=== PATIENT | male | born 1970 | race Hispanic/Latino ===

== ENCOUNTER 2020-08-22 10:11 | Inpatient (IN) | payer SELFPAY ==
[~2020-08-22] VITALS: Ht 162.6 cm; Wt 36.0 kg
[2020-08-22] VITALS (11 sets, daily range): BP systolic 50–115; BP diastolic 33–90
--- NOTE | 2020-08-22 10:11 | NUR ---
PROPER PPE DONNED BY ALL PERSONEL PRIOR TO ENTERING ROOM FOR TRIAGE AND FOR MD EXAM. PATIENT WORE MASK DURING TRIAGE AND EXAM. PATIENT APPEARS IN NO APPARENT DISTRESS AT THIS TIME.
--- NOTE | 2020-08-22 10:11 | NUR ---
PATIENT IMMEDIATELY TO TREATMENT AREA FOR BEDSIDE TRIAGE. PATIENT PLACED ON ISOLATION AND MD AT BEDSIDE FOR EVAL
--- NOTE | 2020-08-22 10:15 | NUR ---
patient settled to room, emaciated in appearance, No apparent distress but appears weak.
[2020-08-22 10:47] LABS: GFR > 60 ML/MIN (>=60 (CALC)); GFR FOR AFR.AMER. > 60 ML/MIN (>=60 (CALC))
[2020-08-22 10:48] LABS: HEMATOCRIT 38.3 % (39.0-50.0); HEMOGLOBIN 12.3 g/dl (14.0-18.0); IMMATURE GRANULOCYTES 0.5 % (0.0-5.0); MEAN CELL VOLUME 89.5 fL CALC (80.0-100.0); MEAN CORPUSCULAR HGB 28.7 pG CALC (26.0-32.0); MEAN CORPUSCULAR HGB CONC 32.1 g/dL CAL (32.0-36.0); NEUT# 3.4 thou/uL (1.82-7.42); RED BLOOD COUNT 4.28 mill/uL (4.70-6.10)
[2020-08-22 11:07] LABS: ALBUMIN 2.8 g/dL (3.2-5.0); ALKALINE PHOSPHATASE 258 u/l (38-126); ANION GAP 13 (6-22 (CALC)); BILIRUBIN, TOTAL 0.7 mg/dL (0.0-1.4); BUN 32 mg/dL (9-20); BUN/CREATININE RATIO 73 (12-20 (CALC)); CARBON DIOXIDE 33 mmol/l (22-30); CHLORIDE 90 mmol/l (95-108); CREATININE 0.4 mg/dL (0.7-1.3); GFR > 60 ML/MIN (>=60 (CALC)); GFR FOR AFR.AMER. > 60 ML/MIN (>=60 (CALC)); MAGNESIUM 2.2 mg/dL (1.6-2.3); POTASSIUM 4.1 mmol/l (3.5-5.1); SGOT/AST 130 u/l (17-59); SODIUM 132 mmol/l (137-146)
--- NOTE | 2020-08-22 12:37 | NUR ---
TRANSFERRED TO ROOM 16 , NEGATIVE PRESSURE. iSOLATION CONTINUES. AIRBORNE PRECAUTIONS CONTINUE.
--- NOTE | 2020-08-22 13:24 | NUR ---
rePORT CALLED TO Jennifer ward IN SBAR FORMAT.
--- NOTE | 2020-08-22 13:42 | NUR ---
PT ARRIVED TO [facility] ROOM 266 VIA STRETCHER ACCOMPAINED BY ER STAFF. PT TRANSFERED FROM STRETCHER TO BE WITH LITTLE DIFFICULTY. PT IS A/O X2 . PT IS SWEDISH SPEAKING ONLY. ASSESSMENT AND VITALS OBTAINED. BP 109/73, YHR 97, O2 96% ON ROOM AIR. RESPIRATIONS ARE SHALLOW AND LABORED. LUNG SOUNDS ARE WET/RONCHI ON ASCULTATING. HEART RHYTHM IS NORMAL WITH TELE IN PLACE. BOWEL SOUNDS ARE ACTIVE IN ALL QUADRANTS, LAST REPORTED BM 08/21/2020. RADIAL AND PEDAL PULSES ARE WEAK. #20G IN LAC RUNNING WITH IVF PER ORDER, SITE APPEARS HEALTHY AND PATENT. PT APPEARS TO BE VERY MALNOURUISHED, WEIGHING 35.2 KG. SKIN IS COOL AND DRY WITH NO BREAKDOWN NOTED. PT NOTIFIED OF NEEDED URINE SAMPLE. PT DENIES ANY ALLERGIES, ALLERGY BAND APPLIED. PT DENIES ANY PAIN. PT PRESENTS WITH $893.00 IN [place], SENT TO [employer] BY [employer]. TOI WITNESSED. ALL SAFETY PRECAUTIONS ARE IN PLACE WITH CALL LIGHT IN REACH. ALL SAFETY PRECAUTIONS ARE IN PLACE WITH CALL LIGHT IN REACH. WILL CONTINUE TO MONITOR.
--- NOTE | 2020-08-22 13:50 | NUR ---
TRANSFERRED TO FLOOR. STABLE UPON ARRIVAL.
--- NOTE | 2020-08-22 15:05 | NUR ---
[address]PT TOLERATED WELL. 800 LUISA COLORED OUTPUT. TUBING UNOBSTRUCTED FLOWING WITH GRAVITY
--- NOTE | 2020-08-22 15:20 | NUR ---
S: RICHAR BUSCH is a 50 M who presents with abscess/cellulitis. He has a no past medical history. All medications in patient's chart were reviewed. O: VS: BP 117/79 mmHg, P 92 bpm, RR 18 breaths/min, T 97.8 F W 35.2 kg, HT 64 inches, Scr= 0.6 mg/dL, CrCl= 72.5 ml/min A: Blood culture is pending. P: Patient is on cefepime 2 gm IV q12h. Vancomycin ordered for pharmacy to dose. Start Vancomycin 1g IV Q24H. Vancomycin trough is drawn before the 4th dose on 08/25/2020 at 1200. Vancomycin goal trough is between 10-15 mcg/ml. Pharmacy will follow and or advise on antibiotics use as needed.
[2020-08-22 15:28] LABS: URINE BILIRUBIN - DIPSTICK NEGATIVE (NEGATIVE); URINE BLOOD DIPSTICK NEGATIVE (NEGATIVE); URINE COLOR YELLOW; URINE GLUCOSE - DIPSTICK NEGATIVE (NEGATIVE); URINE KETONE NEGATIVE (NEGATIVE); URINE LEUK ESTERASE NEGATIVE (NEGATIVE); URINE NITRITE - DIPSTICK NEGATIVE (Negative); URINE PH 6.5 (4.5-8.0); URINE PROTEIN - DIPSTICK NEGATIVE (NEG-TRACE); URINE SPECIFIC GRAVITY 1.015
--- NOTE | 2020-08-22 16:23 | NUR ---
WRITTER CALLED BY BENJI CUNHA ABOUT LACTIC ACID REUSLTING IN 2.0. DLEEANRP NOTIFIED
--- NOTE | 2020-08-22 16:36 | NUR ---
ORDERS TO TRANSFER TO [facility].
--- NOTE | 2020-08-22 16:43 | NUR ---
SPOKE TO LIVIA FROM [facility]. BIOFIRE TO BE COMPLETED. FACESHEET FAXED TO [facility] TRANSFER [facility].
--- NOTE | 2020-08-22 16:50 | NUR ---
BIOFIRE COLLECTED. PT TOLERATED WELL.
--- NOTE | 2020-08-22 17:44 | NUR ---
UPDATE REC FROM LIVIA AT [facility] TRANSFER [facility]. AWAITING COVID RESULTS. PER LIVIA WORKING ON OBTAINING NEGATIVE PRESSURE ROOM.
--- NOTE | 2020-08-22 18:02 | NUR ---
ATTMEPT MADE TO CALL FAMILY TO OBTAIN VERBAL CONSENT TO TRANSFER TO [facility], PER EMERGENCY LISTED CONTACT, THE PTS COUSINS PHONE NUMBER WAS GIVEN . ATTEMPT MADE TO SPEAK TO COUSIN, NO ANSWER AND NO PLACE TO LEAVE VOICEMAIL. ATTEMPT TO BE MADE AGAIN.
--- NOTE | 2020-08-22 18:13 | NUR ---
VERBAL CONSENT TO TRANSFER FROM [facility]
--- NOTE | 2020-08-22 18:31 | NUR ---
WRITTER NOTIFIED OF APPROVAL OF TRANSFER FROM [facility] FROM TRANSFER CENTER. AWAITING RESPIRATORY PCR RESULTS BEFORE GIVEN BED ASSIGNMENT.
--- NOTE | 2020-08-22 19:10 | NUR ---
BIOFIRE NEGATIVE. RESULTS FAXED TO LIVIA AT [facility] TRANSFER [facility]
--- NOTE | 2020-08-22 19:13 | NUR ---
BED ASSIGNMENT [facility] ROOM 9112 RECIEVED FROM [facility] FROM TRANSFER CENTER.
--- NOTE | 2020-08-22 19:25 | NUR ---
WRIITER NOTIFIED BY GLOVE MAKER THAT BP AND O2 SAT WAS UNABLE TO BE OBTAINED. UPON ENTERING ROOM. PT IS NON RESPONSIVE. BREATHING IS AGONAL. 5L NC APPLIED. MANUAL BP OBTAINED RESULTING IN 50/33. O2 SATS 43%
--- NOTE | 2020-08-22 19:30 | NUR ---
RAPID RESPONSE CALLED. ORDERS FROM DR MONTENEGRO BOLUS X2 AND TRANSFER TO ICU TO INTUBATE IF NEEDED. PT REMAINS UNRESPONSIVE AND BREATHING AGANOL. PT TRANSFERED TO ICU.
--- NOTE | 2020-08-22 19:36 | NUR ---
TO ICU S/P RAPID RESPONSE. ON ARRIVAL, PT NOT RESPONSIVE AND STAFF REPORTED THEY DID NOT THINK HE HAS A PULSE AT THIS TIME. [facility] CALLED.
--- NOTE | 2020-08-22 20:25 | NUR ---
DURING CODE, IO PLACE LLE, TLCL PLACED IN RIJ (VERIFIED BY RADIOLOGY AND PERMISSION TO USE BY DR MCGEE), LEVOPHED INITATED AND INCREASED TO 25MCG/MIN, DIPRIVAN INITIATED AND REMAINS AT 5MCH/KG/MIN (1.1ML/HR), RECEIVED 3000ML NS VIA BOLUSES AFTER RESUMED D5NS AT 100ML/HR. PT HAS MICHEL TO BSD, INTUBATED WITH EASE WITH 7.5 ETT AND SECURED IN CENTER OF MOUTH WITH COMMERTIAL VALERIO AT 23CM LIP LINE. OG INSERTED (WITH EASE) AND PLACEMENT VERIFIED. TO LIS. SMALL AMOUNT BILE COLORED DRAINAGE OBTAINED. PULSE GENERALLLY GREATER THAN 100 AND READILY PALPABLE. ONLY B/P OBTAINED BY MONITOR WAS 96/72 AT 2009. OTHERWISE, ONLY MANUAL B/P PALPED OBTAINED SO FAR. VENT SETTINGS ASSIST CONTROL, RATE 16, O2 100%, TV 450, PEEP 5. RESPIRATIONS 16. PUPILS 4 AND SLUGGISH
--- NOTE | 2020-08-22 20:35 | NUR ---
INTUBATED BY ER DOCTOR WITH A 7.5 ETT AT 23 CM OF THE LIPS. ETT PLACEMENT VERIFIED BY CO2 DETECTOR, BREATH SOUND LISTENING AND THEN X-RAY. PLACED ON VENTILATOR WITH THE FOLLOWING SETTING: AC RATE 16, VT 450, PEEP 5 AND 100% FIO2.
[2020-08-23] VITALS: BP 96/62
--- NOTE | 2020-08-23 00:05 | NUR ---
DR MONTENEGRO NOTIFIED OF PATIENT'S CONDITION AND THAT THE TRANSFER CENTER AT [facility] WOULD NEED A [id number] REPORT IF DR MONTENEGRO STILL WANTS PATIENT TRANSFERRED TO [facility]. WE WILL CONTINUE TREATMENT IN ICU AT THIS TIME RX.
--- NOTE | 2020-08-23 00:33 | NUR ---
FAMILY GRAY HOWE AND HIS DAUGHTER MARSHA HOWE NOTIFIED OF PATIENT'S CHANGE OF CONDITION. I INFORMED THEM THAT HE IS ON LIFE SUPPORT AND TOO UNSTABLE TO TRANSFER TO [facility] AT THIS TIME. THEY ASKED THAT WE CONTINUE TO DO WHAT IS NEEDED TO KEEP HIM ALIVE AND THANKED ME FOR THE UPDATE.
[2020-08-23 01:00] VITALS: BP 92/64
[2020-08-23 01:30] VITALS: BP 99/56
--- NOTE | 2020-08-23 01:30 | NUR ---
BEDRESTING. NO RESPONSE TO STERNAL RUB. B/P ARE PALPABLE- NOT OBTAINED VIA MONITOR. CONTINUE WITH D5NS, DIPRIVAN AND LEVOPHED THROUGH TLCL. IO AND IV OF LEFT A/C ARE HL
[2020-08-23 02:00] VITALS: BP 112/68
--- NOTE | 2020-08-23 02:52 | NUR ---
OPENING EYES LOOKING ABOUT. GIVEN ORIENTATION. ATTEMPTING TO REMOVE WRIST RESTRAINTS. INCREASED DIPROVAN FOR SAFETY
--- NOTE | 2020-08-23 03:58 | NUR ---
CONTINUE TO GET B/P PALPABLE. URINE OUTPUT HAS INCEAASED AND IS NOW DARK YELLOW INSTAD OF LUISA. PT HAS HAD A LARGE AMOUNT OF IV FLUIDS
--- NOTE | 2020-08-23 04:15 | NUR ---
RT AT BEDSIDE SAT CONTINUES TO SLOWLY DECREASE. ABG DONE. PEEP RAISED TO 7. PT WAKING SO DIPRIVAN RAISED TOO
[2020-08-23 04:46] LABS: BASO% 0 % (0-3); EOS% 0 % (0-8); HEMATOCRIT 34.5 % (39.0-50.0); HEMOGLOBIN 10.6 g/dl (14.0-18.0); IMMATURE GRANULOCYTES 0.5 % (0.0-5.0); LYMPH% 3 % (15-41); MEAN CELL VOLUME 92.7 fL CALC (80.0-100.0); MEAN CORPUSCULAR HGB 28.5 pG CALC (26.0-32.0); MEAN CORPUSCULAR HGB CONC 30.7 g/dL CAL (32.0-36.0); MONO% 1 % (2-13); NEUT# 3.53 thou/uL (1.82-7.42); NEUT% 95 % (42-76); PLATELET COUNT 375 thou/uL (130-400); RED BLOOD COUNT 3.72 mill/uL (4.70-6.10); RED CELL DISTRI WIDTH 15.4 % (11.5-15.5)
--- NOTE | 2020-08-23 04:55 | NUR ---
BEDRESTING. CONTINUES ON VENT WITH AIRBORNE PRECAUTIONS.
[2020-08-23 05:09] LABS: BUN 34 mg/dL (9-20); BUN/CREATININE RATIO 63 (12-20 (CALC)); CREATININE 0.5 mg/dL (0.7-1.3); GFR > 60 ML/MIN (>=60 (CALC)); GFR FOR AFR.AMER. > 60 ML/MIN (>=60 (CALC)); POTASSIUM 4.4 mmol/l (3.5-5.1); SGOT/AST 130 u/l (17-59); SODIUM 131 mmol/l (137-146)
[2020-08-23 05:21] LABS: ALBUMIN 1.9 g/dL (3.2-5.0); ALKALINE PHOSPHATASE 388 u/l (38-126); ANION GAP 12 (6-22 (CALC)); BILIRUBIN, TOTAL 1.2 mg/dL (0.0-1.4); C-REACTIVE PROTEIN 21.1 mg/dL (0-0.9); CARBON DIOXIDE 21 mmol/l (22-30); CHLORIDE 102 mmol/l (95-108)
--- NOTE | 2020-08-23 06:27 | NUR ---
BEDRESTING. RESP EVEN AND NONLABORED. TOLERATING VENT SETTINGS WELL.
--- NOTE | 2020-08-23 06:30 | NUR ---
B/O STILL PALPABLE-NOT AUDIBLE
--- NOTE | 2020-08-23 08:00 | NUR ---
PT SUPINE IN BED. INTUBATED. IV MEDS INFUSING WITHOUT COMPLICATIONS. VITALS STABLE ON MONITOR.
--- NOTE | 2020-08-23 09:58 | NUR ---
DR COLEMAN PHONED AND GAVE APPROVAL FOR FEMORAL A LINE.
--- NOTE | 2020-08-23 10:00 | NUR ---
UNABLE TO OBTAIN A BP ON MONITOR OR MANUAL. DR COLEMAN WAS AT BEDSIDE AND AWARE. ORDER PLACED FOR ARTERIAL LINE.
--- NOTE | 2020-08-23 11:45 | NUR ---
PENDING TRANSFER. AWAITING BED ASSIGNEMENT FROM [facility] ICU.
--- NOTE | 2020-08-23 14:32 | NUR ---
call received from Essence at [facility] transfer center; pt to transfer to 10A; report to be called to [phone]
--- NOTE | 2020-08-23 14:35 | NUR ---
Dr Wiggins called per Martinez May RN in regards to mode of transfer; pt to transfer per ground transport;
--- NOTE | 2020-08-23 14:42 | NUR ---
[facility] Transfer [facility] called per this fiction and nonfiction writer prose; information provided; ETA 45 min to 1 hour;
[2020-08-23 15:00] VITALS: BP 85/44
--- NOTE | 2020-08-23 15:45 | NUR ---
REPORT CALLED TO [facility] ICU, SPOKE WITH MAGDA POTTER.
--- NOTE | 2020-08-23 17:10 | NUR ---
TRANSPORT HERE FOR CARTOGRAPHY PROFESSOR. REPORT GIVEN.
--- NOTE | 2020-08-23 17:25 | NUR ---
TRANSPORT HERE TO TAKE PT TO [facility]. PT PLACED ON TRANSPORT VENT WITHOUT COMPLICATION.
--- NOTE | 2020-08-23 17:35 | NUR ---
TRANSPORT DEPARTED WITH PT AT THIS TIME.
--- NOTE | 2020-08-25 14:47 | NUR ---
Final urine cultures were sent via fax to [facility] [phone] to nurse Irizarry
== END 2020-08-23 17:45 | disposition short-term general hospital (02) | DRG 981 ==
LOC: ED 10:11 → ED-I 12:39 → ED 12:53 → MS2 12:54 → ICU 19:33
PROVIDERS: Family Medicine; Nurse Practitioner; ADMIT Internal Medicine; ATTEND Internal Medicine
PROC: 0BH17EZ Insertion of Endotracheal Airway into Trachea, Via Natural or Artificial Opening (ICD-10-PCS; 2020-08-22)
PROC: 5A1935Z Respiratory Ventilation, Less than 24 Consecutive Hours (ICD-10-PCS; 2020-08-22)
PROC: 0T9B70Z Drainage of Bladder with Drainage Device, Via Natural or Artificial Opening (ICD-10-PCS; 2020-08-22)
PROC: 02HV33Z Insertion of Infusion Device into Superior Vena Cava, Percutaneous Approach (ICD-10-PCS; 2020-08-22)
PROC: 0D9P0ZZ Drainage of Rectum, Open Approach (ICD-10-PCS; principal; 2020-08-23)
PROC: 04HY32Z Insertion of Monitoring Device into Lower Artery, Percutaneous Approach (ICD-10-PCS; 2020-08-23)
DX: A15.0 Tuberculosis of lung (principal); J96.01 Acute respiratory failure with hypoxia; A41.9 Sepsis, unspecified organism; R65.21 Severe sepsis with septic shock; K61.1 Rectal abscess; G93.40 Encephalopathy, unspecified; R64 Cachexia; E86.0 Dehydration; R62.7 Adult failure to thrive; R33.9 Retention of urine, unspecified; D47.3 Essential (hemorrhagic) thrombocythemia; D72.819 Decreased white blood cell count, unspecified; Z20.828 Contact with and (suspected) exposure to other viral communicable diseases
CPT/HCPCS: J0692; J1650; Q3014; Q9967